=== PATIENT | male | born 1970 | race African-American/Black ===

== ENCOUNTER 2020-05-01 11:24 | Emergency (ER) | payer BC ==
[~2020-05-01] VITALS: Ht 170.2 cm; Wt 119.2 kg
[2020-05-01] MEDS ORDERED: ASPI-515 PO (11:49)
[2020-05-01] MEDS ORDERED: INSU100C SQ-INSULIN (11:49)
[2020-05-01] MEDS ORDERED: INSU100V8 SQ (11:49)
[2020-05-01] MEDS ORDERED: LOSA25TA25 PO (11:49)
[2020-05-01] MEDS ORDERED: METF500T17 PO (11:49)
[2020-05-01] MEDS ORDERED: ONDANSETRON 2MG/ML, 2ML ONE (11:51)
[2020-05-01] MEDS ORDERED: MORPHINE SULFATE 4 MG/ML, 1ML ONE (11:51)
[2020-05-01] MEDS ORDERED: ONDANSETRON 2MG/ML, 2ML IVPush ONE (12:00)
[2020-05-01] MEDS ORDERED: SODIUM CHLORIDE FLUSH 10ML SYR IVF ONE (12:00)
[2020-05-01] MEDS ORDERED: MORPHINE SULFATE 4 MG/ML, 1ML IVPush PRN (12:00)
[2020-05-01 12:14] LABS: BASOPHILS % (AUTO) 1 % (0-1); EOSINOPHILS % (AUTO) 4 % (1-7); LYMPHOCYTES % (AUTO) 27 % (22-44); MEAN CORPUSCULAR HEMOGLOBIN 29.8 pg (27.5-34.5); MEAN CORPUSCULAR HGB CONC 34.4 g/dL (33.2-36.2); MEAN PLATELET VOLUME 7.6 fL (7.4-10.4); MONOCYTES % (AUTO) 9 % (2-9); NEUTROPHILS % (AUTO) 59 % (42-75); PLATELET COUNT 279 x10^3/uL (130-400); RED BLOOD COUNT 5.25 x10^6/uL (4.38-5.82); RED CELL DISTRIBUTION WIDTH 14.7 % (9.4-14.8)
[2020-05-01 12:15] LABS: MD NO
[2020-05-01 12:26] LABS: ALBUMIN 3.7 g/dL (3.4-5.0); CALCIUM 9.1 mg/dL (8.5-10.1); CHLORIDE 107 mmol/L (98-107); CREATININE 0.94 mg/dL (0.7-1.3)
[2020-05-01] MEDS ORDERED: KETOROLAC 30 MG/1 ML ONE (12:35)
[2020-05-01 12:37] LABS: ANION GAP 5 mmol/L (5-15)
[2020-05-01] MEDS: KETOROLAC 30 MG/1 ML IVPush ONE ×2 (12:39→12:40)
[2020-05-01 12:42] VITALS: BP 148/96
== END 2020-05-01 13:06 | disposition home or self-care (01) ==
LOC: ED 12:28
DX: M77.12 Lateral epicondylitis, left elbow (principal); M77.11 Lateral epicondylitis, right elbow; R07.89 Other chest pain; R51.9 Headache, unspecified; E11.9 Type 2 diabetes mellitus without complications; I10 Essential (primary) hypertension
CPT/HCPCS: 36415; 71045; 80048; 82040; 83880; 85025; 93005; 96374; 96375; 99284; J1885; J2270; J2405